=== PATIENT | male | born 1965 | race American Indian/Alaskan Native ===

== ENCOUNTER 2017-02-28 23:40 | Emergency (ER) | payer MEDICAID ==
[2017-03-01 00:21] VITALS: O2SAT 97
--- NOTE | 2017-03-01 01:24 | C.PDOC ---
History Of Present Illness A 52 year old male presents to the emergency room with complaints of chronic back pain. Patient is requesting a refill of Endocet 10 mg, which is what he is getting from his pain management doctor. Patient states that he ran out of the medication and didn't follow up in time. Patient reports that he has an appointment with pain management in a few days for nerve testing studies. Patient denies any trauma/injury, fever, any urinary symptoms, bladder or bowel incontinence, parasthesia, or any other complaints. Time Seen by Provider: 03/01/17 00:29 Chief Complaint (Nursing): Back Pain History Per: Patient History/Exam Limitations: no limitations Onset/Duration Of Symptoms: Unknown Current Symptoms Are (Timing): Still Present Quality Of Discomfort: "Pain" Severity: Mild Previous Symptoms: Back Pain, Chronic Pain Associated Symptoms: None. denies: Incontinence, New Weakness, New Numbness Exacerbating Factor(s): Nothing Recent travel outside of the [place]: No Past Medical History Reviewed: Historical Data, Nursing Documentation, Vital Signs Vital Signs: Last Vital Signs Temp 97.6 F 03/01/17 01:46 Pulse 86 03/01/17 01:46 Resp 20 03/01/17 01:46 BP 122/69 03/01/17 01:46 Pulse Ox 97 03/01/17 01:47 Family History: States: Unknown Family Hx - Social History Hx Alcohol Use: No Hx Substance Use: No - Immunization History Hx Tetanus Toxoid Vaccination: No Hx Influenza Vaccination: No Hx Pneumococcal Vaccination: No Review Of Systems Except As Marked, All Systems Reviewed And Found Negative. Constitutional: Negative for: Fever, Chills Gastrointestinal: Negative for: Nausea, Vomiting, Diarrhea Genitourinary: Negative for: Dysuria, Frequency, Incontinence, Hematuria Musculoskeletal: Positive for: Back Pain Physical Exam - Physical Exam Appears: Well, Non-toxic, No Acute Distress Skin: Normal Color, Warm, Dry Head: Atraumatic, Normacephalic Eye(s): bilateral: Normal Inspection Oral Mucosa: Moist Neck: Normal ROM, No Midline Cervical Tenderness, No Paracervical Tenderness, Supple Cardiovascular: Rhythm Regular Respiratory: Normal Breath Sounds, No Rales, No Rhonchi, No Wheezing Gastrointestinal/Abdominal: Soft, No Tenderness, No Guarding, No Rebound Back: No CVA Tenderness, No Vertebral Tenderness, No Decreased ROM, No Muscle Spasm, No Paraspinal Tenderness Extremity: Normal ROM, No Tenderness Neurological/Psych: Oriented x3, Normal Speech, Normal Cognition, Normal Motor, Normal Sensation Gait: Steady ED Course And Treatment O2 Sat by Pulse Oximetry: 97 Medical Decision Making Medical Decision Makin yo M presents with chronic low back pain, is requesting for a refill of his endocet. According to [facility], patient's last Rx was on 01/03/17 for endocet 10 mg #60 tabs and prior to that was on 06/07/16. Patient advised that he will receive a refill for 10 tabs only and that he must follow up with his pmd or pain management MD without fail for further refill of his Rx and that the ER is not the appropriate setting to obtain narcotic Rx refill. Patient verbalize understanding of the instructions, states that he has an appointment in the following days. Disposition - Disposition Disposition: HOME/ ROUTINE Disposition Time: 01:24 Condition: GOOD Additional Instructions: Follow up with your pmd and pain management doctor in 2 days for re-evaluation and follow up. Take medications as prescribed. Return to the ER at any time for any new or worsening symptoms. 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 - Scribe Statement The provider has reviewed the documentation as recorded by the Jordan Gray Provider Scribe Attestation: All medical record entries made by the Jordan were at my direction and personally dictated by me. I have reviewed the chart and agree that the record accurately reflects my personal performance of the history, physical exam, medical decision making, and the department course for this patient. I have also personally directed, reviewed, and agree with the discharge instructions and disposition.
[2017-03-01 01:47] VITALS: BP 122/69; PULSE 86; RESP 20; TEMP 97.6
== END 2017-03-01 01:47 | disposition home or self-care (01) ==
LOC: C.ER 23:40
DX: G89.29 Other chronic pain (principal); M54.5 Low back pain

== ENCOUNTER 2017-10-26 06:10 | Emergency (ER) | payer MEDICAID ==
[2017-10-26 06:11] VITALS: BMI 37.9
[2017-10-26 06:26] VITALS: PULSE 80; TEMP 97.2; O2SAT 98
[2017-10-26] MEDS ORDERED: Oxycodone/Acetaminophen 5/325 mg Tab PO STA (07:18)
[2017-10-26] MEDS ORDERED: Oxycodone/Acetaminophen 5/325 mg Tab ONE (07:22)
--- NOTE | 2017-10-26 07:22 | C.PDOC ---
History Of Present Illness 52-year-old male presents to the emergency department with complaints of exacerbation of his chronic lower back pain after he lifted a heavy object at work three days ago. Patient states he sees a pain management physician and typically takes Oxycodone 10mg, but ran out (has an appointment in two days). Patient states that pain radiates to bilateral legs sometimes. He denies bowel/ bladder incontinence, urinary retention, nausea/vomiting, dysuria/hematuria, abdominal pain. Time Seen by Provider: 10/26/17 07:08 Chief Complaint (Nursing): Back Pain History Per: Patient History/Exam Limitations: no limitations Onset/Duration Of Symptoms: Days (3) Current Symptoms Are (Timing): Still Present Severity: Mild Previous Symptoms: Back Pain, Chronic Pain Past Medical History Reviewed: Historical Data, Nursing Documentation, Vital Signs Vital Signs: Last Vital Signs Temp 97.2 F L 10/26/17 06:21 Pulse 80 10/26/17 07:50 Resp 18 10/26/17 07:50 BP 123/72 10/26/17 07:50 Pulse Ox 98 10/26/17 09:22 - Medical History PMH: HTN Family History: States: No Known Family Hx - Social History Hx Alcohol Use: No Hx Substance Use: No - Immunization History Hx Tetanus Toxoid Vaccination: No Hx Influenza Vaccination: No Hx Pneumococcal Vaccination: No Review Of Systems Except As Marked, All Systems Reviewed And Found Negative. Constitutional: Negative for: Fever, Chills Gastrointestinal: Negative for: Nausea, Vomiting, Abdominal Pain, Diarrhea Genitourinary: Negative for: Dysuria, Incontinence, Hematuria Musculoskeletal: Positive for: Back Pain Skin: Negative for: Rash Neurological: Negative for: Weakness, Numbness, Headache, Dizziness Physical Exam - Physical Exam Appears: Well, Non-toxic, No Acute Distress Skin: Warm, Dry, No Rash Eye(s): bilateral: Normal Inspection Oral Mucosa: Moist Cardiovascular: Rhythm Regular Respiratory: Normal Breath Sounds, No Rales, No Rhonchi, No Wheezing Gastrointestinal/Abdominal: Normal Exam, Bowel Sounds, Soft, No Tenderness Back: No CVA Tenderness, No Vertebral Tenderness, Paraspinal Tenderness (lumbar) Extremity: Normal ROM Neurological/Psych: Oriented x3 ED Course And Treatment O2 Sat by Pulse Oximetry: 98 (on RA) Pulse Ox Interpretation: Normal Progress Note: Patient given 1 dose PO Percocet with improvement of pain. He understands he needs to obtain further narcotic pain medication from his pain management physician (has scheduled folloe up appt). He is ambulating normally in ED. Patient understands he should return to ED if symptoms worsen. Reevaluation Time: :45 Reassessment Condition: Improved Disposition Counseled Patient/Family Regarding: Studies Performed, Diagnosis, Need For Followup - Disposition Referrals: Fredrick Kulkarni MD [Staff Provider] - Disposition: HOME/ ROUTINE Disposition Time: :45 Condition: STABLE Additional Instructions: FOLLOW UP WITH YOUR PAIN MANAGEMENT PHYSICIAN ON SATURDAY SCHEDULED RETURN TO ER IF SYMPTOMS WORSEN Instructions: Back Pain (ED) Forms: [employer] (Martiniquais), Work Excuse Print Language: AFGHAN - Clinical Impression Clinical Impression: Low back pain - Scribe Statement The provider has reviewed the documentation as recorded by the Scribe (Sanjiv Madrid) All medical record entries made by the Scribe were at my direction and personally dictated by me. I have reviewed the chart and agree that the record accurately reflects my personal performance of the history, physical exam, medical decision making, and the department course for this patient. I have also personally directed, reviewed, and agree with the discharge instructions and disposition.
[2017-10-26 07:50] VITALS: BP 123/72; RESP 18
== END 2017-10-26 07:51 | disposition home or self-care (01) ==
LOC: C.ER 06:10
DX: M54.5 Low back pain (principal); I10 Essential (primary) hypertension